=== PATIENT | male | born 1975 | race Caucasian/White ===

== ENCOUNTER 2018-06-26 08:07 | Emergency (ER) | payer BC ==
[2018-06-26] MEDS ORDERED: 0.9 % SODIUM CHLORIDE 1,000 ML BAG IV ONE (08:26)
[2018-06-26] MEDS ORDERED: KETOROLAC 30 MG/ML VIAL IVP ONE (08:27)
--- NOTE | 2018-06-26 08:32 | Emergency Department Record ---
History of Present Illness - General Chief complaint: Flank Pain Stated complaint: BACK & ABD PAIN Time Seen by Provider: 06/26/18 08:19 Source: Patient Mode of Arrival: Ambulatory Limitations: No limitations - History of Present Illness Initial comments: The patient is here due to the acute onset of L lower back/flank pain that wraps around to the LLQ which came on suddenly about 2 hours ago. He has had mild intermittent nausea but no vomiting. The patient denies any dysuria, hematuria, diarrhea, fever or chills and he denies any hx of similar problems. MD Complaint: Other Onset/Timin -: Hour(s) Location: Left flank Radiation: L flank, LLQ Severity: Moderate Severity scale (1-10): 8 Quality: Aching, Sharp Consistency: Constant, Intermittent Improves with: None - Related Data Previous Rx's Medication Instructions Recorded Ibuprofen [Motrin] 800 mg PO TID PRN #20 tab 06/26/18 Ondansetron [Zofran Odt] 4 mg SL .Q4-6H PRN #12 tab.rapdis 06/26/18 Prednisone [Prednisone 20Mg] 40 mg PO DAILY #6 tab 06/26/18 Allergies Allergy/AdvReac Type Severity Reaction Status Date / Time ketorolac [From Toradol] Allergy RASH Verified 06/26/18 08:49 Penicillins Allergy PT UNSURE Verified 06/26/18 08:18 OF REACTION Travel Screening - Travel/Exposure Within Last 30 Days Have you traveled within the last 30 days?: No - Travel/Exposure Within Last Year Have you traveled outside the [place] in the last year?: No - Additonal Travel Details Have you been exposed to anyone with a communicable illness?: No - Travel Symptoms Symptom Screening: None Review of Systems Constitutional: Denies: Chills, Fever Eyes: Denies: Eye discharge ENT: Denies: Congestion Respiratory: Denies: Cough, Dyspnea Cardiovascular: Denies: Chest pain Endocrine: Denies: Fatigue Gastrointestinal: Reports: Nausea Genitourinary: Denies: Dysuria Musculoskeletal: Reports: Back pain. Denies: Arthralgia Skin: Denies: Bruising Past Medical History - SOCIAL HISTORY Smoking Status: Former smoker Alcohol Use: Rare Drug Use: None - RESPIRATORY Hx Respiratory Disorders: Yes Hx Asthma: Yes - CARDIOVASCULAR Hx Cardio Disorders: No - NEURO Hx Neuro Disorders: No - GI Hx GI Disorders: No - Hx Genitourinary Disorders: No - ENDOCRINE Hx Endocrine Disorders: No - MUSCULOSKELETAL Hx Musculoskeletal Disorders: No - PSYCH Hx Psych Problems: No - HEMATOLOGY/ONCOLOGY Hx Hematology/Oncology Disorders: No Family Medical History Any Significant Family History?: No Physical Exam - General General Appearance: Alert, Oriented x3, Cooperative, No acute distress - Head Head exam: Atraumatic, Normocephalic, Normal inspection - Eye Eye exam: Normal appearance, PERRL - ENT Throat exam: Normal inspection. negative: Tonsillar erythema, Tonsillar exudate - Neck Neck exam: Normal inspection, Full ROM. negative: Tenderness - Respiratory Respiratory exam: Normal lung sounds bilaterally. negative: Respiratory distress - Cardiovascular Cardiovascular Exam: Regular rate, Normal rhythm, Normal heart sounds - GI/Abdominal GI/Abdominal exam: Soft, Tenderness (There is mild LLQ tenderness.). negative: Guarding, Pulsatile mass, Rebound, Rigid - Extremities Extremities exam: Normal inspection, Full ROM, Normal capillary refill. negative: Tenderness - Back Back exam: Reports: Normal inspection. Denies: CVA tenderness (R), CVA tenderness (L), Muscle spasm, Paraspinal tenderness, Vertebral tenderness - Neurological Neurological exam: Alert, Normal gait. negative: Abnormal gait, Motor sensory deficit - Psychiatric Psychiatric exam: negative: Anxious - Skin Skin exam: negative: Rash Course Vital Signs 06/26/18 06/26/18 08:12 08:18 Temperature 97.8 F Pulse Rate 77 Respiratory 16 Rate Blood Pressure 141/99 Pulse Ox 98 - Reevaluation(s) Reevaluation #1: The patient is doing well at this time. The pain did get worse at one time and now is improving. The patient did appear to have an allergic txn to Toradol and Benadryl and Solu-medrol was given. 06/26/18 09:28 Reevaluation #2: The patient states he is doing a lot better and states his pain has resolved. I did explain that the CT does demonstrate what appears to be recently passed stones in the bladder. He is very comfortable and will strain his urine and see his PCP for recheck. The patient has had Motrin multiple times and feels comfortable taking it at home. 06/26/18 10:17 Medical Decision Making - Data Complexity MDM Data: Labs Ordered and/or Reviewed, X-Ray Ordered and/or Reviewed - Lab Data Result diagrams: 06/26/18 08:40 06/26/18 08:40 - Radiology Data Radiology results: Report reviewed (CT: Mild L hydroureter with 2 small stones in bladder, the larger measuring 2-3 mm and appear to be recently passed.) Disposition Disposition: Discharge Clinical Impression: Ureter colic Disposition: Home, Self-Care Condition: (2) Stable Instructions: Flank Pain (ED) Additional Instructions: Please drink plenty of fluids and strain your urine. Please bring your passed stones to your PCP. Please see your family doctor for recheck later this week or next week. Take Motrin for pain and use Zofran for nausea and also take Benadryl for 3 days along with the Prednisone. Return to the ER for any worsening pain, fever, or vomiting. Prescriptions: Ibuprofen [Motrin] 800 mg PO TID PRN #20 tab PRN Reason: Pain Ondansetron [Zofran Odt] 4 mg SL .Q4-6H PRN #12 tab.rapdis PRN Reason: Nausea Prednisone [Prednisone 20Mg] 40 mg PO DAILY #6 tab Forms: Patient Portal Access Time of Disposition: 10:21 Quality - Quality Measures Quality Measures: N/A - Blood Pressure Screening View Details: Yes Does Patient Have Any of the Following: No Blood Pressure Classification: Hypertensive Reading Systolic Measurement: 141 Diastolic Measurement: 99 Screening for High Blood Pressure: < First Hypertensive BP, F/U Documented > [ G8950] First Hypertensive Follow-up Interventions: Referral to alternative/primary care provider.
[2018-06-26] MEDS ORDERED: ONDANSETRON HCL IV 4 MG/2 ML VIAL IVP ONE (08:36)
[2018-06-26] MEDS ORDERED: METHYLPREDNISOLONE PF 125MG/VIAL IVP ONE (08:41)
[2018-06-26] MEDS ORDERED: DIPHENHYDRAMINE HCL 50 MG/ML VIAL IVP ONE (08:41)
[2018-06-26] MEDS ORDERED: ACETAMINOPHEN 1,000 MG/100 ML BTL IVPB ONE (08:45)
[2018-06-26 08:54] LABS: BASO % 0.2 % (0-6); EOS % 1.2 % (0-6); HEMATOCRIT 41.9 % (42.0-52.0); HEMOGLOBIN 14.5 gm/dl (14.0-18.0); LYMPH % 12.9 % (16-45); MEAN CELL VOLUME 88.2 fl (81-97); MEAN CORPUSCULAR HEMOGLOBIN 30.5 pg (27-33); MEAN CORPUSCULAR HGB CONC 34.6 g/dl (32-36); MEAN PLATELET VOLUME 8.8 fl (7.4-10.4); MONO % 5.7 % (0-9); PLATELET COUNT 258 K/uL (130-400); RED BLOOD COUNT 4.75 M/uL (4.40-5.70); RED CELL DISTRIBUTION WIDTH 12.4 % (11.5-14.5); WHITE BLOOD COUNT W/O DIFF 10.2 K/uL (4.2-12.2)
[2018-06-26 09:02] LABS: BLOOD UREA NITROGEN 12 mg/dL (6-20); CREATININE 1.1 mg/dL (0.7-1.2); EST GLOMERULAR FILTRATION RATE > 60 mL/min
[2018-06-26 09:04] LABS: GLUCOSE,RANDOM 127 mg/dL (74-109)
[2018-06-26] MEDS ORDERED: HYDROMORPHONE HCL 2 MG/ML VIAL IVP ONE (09:16)
[2018-06-26 09:37] LABS: URINE APPEARANCE CLEAR; URINE BILIRUBIN NEGATIVE (NEGATIVE); URINE BLOOD SMALL (NEGATIVE); URINE COLOR YELLOW; URINE GLUCOSE (UA) NEGATIVE (NEGATIVE); URINE KETONE NEGATIVE (NEGATIVE); URINE LEUKOCYTE ESTERASE NEGATIVE (NEGATIVE); URINE NITRITE NEGATIVE (NEGATIVE); URINE UROBILINOGEN 0.2 E.U./dL (0.20 - 1.00)
[2018-06-26 09:47] LABS: URINE MUCUS LIGHT; URINE WBC 0 - 2 (0-2/hpf)
--- NOTE | 2018-06-28 10:51 | CT SCAN REPORT ---
EXAM: NONCONTRAST CT OF THE ABDOMEN AND PELVIS HISTORY: LEFT FLANK PAIN. TECHNIQUE: Noncontrast CT of the abdomen and pelvis was obtained. Comparison: None. FINDINGS: The lung bases are clear. Unremarkable noncontrast CT appearance of the liver, spleen, gallbladder, adrenal glands, and pancreas. Mild left hydroureteronephrosis. No definite intraureteral or intrarenal calculi are seen. There are two small calculi which appear to be within the bladder lumen, one of which is slightly adjacent to the left ureterovesicular junction and measures between 2 and 3 mm. The urinary bladder is otherwise collapsed and not well assessed. The colon appears collapsed and possibly mildly thickened from the mid transverse colon through the rectum. The remainder of the colon is non- thickened and noninflamed. Normal appendix. The stomach and small bowel are nondilated. No free air or free fluid. The abdominal aorta is nondilated. Intravertebral disk height loss with bulge at L5-S1. No acute osseous findings. IMPRESSION: 1. MILD LEFT HYDROURETERONEPHROSIS. THERE ARE TWO CALCULI, THE LARGEST OF WHICH MEASURES BETWEEN 2 AND 3 MM WHICH APPEAR TO BE WITHIN THE URINARY BLADDER AND MAY HAVE RECENTLY PASSED. 2. COLLAPSED AND POSSIBLE MILD THICKENING OF THE COLON FROM THE MID TRANSVERSE THROUGH THE SIGMOID COLON. THIS APPEARANCE MAY BE RELATED TO UNDERDISTENTION ALTHOUGH CORRELATION FOR UNDERLYING COLITIS IS RECOMMENDED. JOB NUMBER: [id number] [facility]
== END 2018-06-26 10:30 | disposition home or self-care (01) ==
LOC: ER 08:07
DX: N13.2 Hydronephrosis with renal and ureteral calculous obstruction (principal); L27.1 Localized skin eruption due to drugs and medicaments taken internally; T39.8X5A Adverse effect of other nonopioid analgesics and antipyretics, not elsewhere classified, initial encounter; R20.0 Anesthesia of skin; R10.32 Left lower quadrant pain; Z87.891 Personal history of nicotine dependence; Y92.230 Patient room in hospital as the place of occurrence of the external cause
CPT/HCPCS: 99284 ×2; 96365; 96375; 96361; 85025; 80048; 81001; 74176; J1885; J2405; J1200; J2930; J7030

== ENCOUNTER 2018-07-28 20:40 | Emergency (ER) | payer BC ==
--- NOTE | 2018-07-28 20:54 | Emergency Department Record ---
History of Present Illness - General Chief Complaint: Ankle/Foot Injury Stated Complaint: LT FOOT PAIN/SWELLING Time Seen by Provider: 07/28/18 20:48 Source: Patient Mode of Arrival: Ambulatory Limitations: No limitations - History of Present Illness Initial Comments: 42 yo male presents with an injury to the left foot and ankle. He mis-stepped on a rug at 5pm. He felt a pop in the left foot and ankle. Over the last 4-5 hours the pain has increased. He initially was able to bear weight. No history of foot and ankle pain. MD Complaint: Ankle injury, Foot injury Onset/Timin -: Hour(s) Type of Injury: Unknown Place: Home Severity: Moderate Severity scale (1-10): 6 Improves With: Rest Worsens With: Movement, Palpation, Weight bearing Context: Walking, Other Treatments Prior to Arrival: NSAIDS - Related Data Previous Rx's Medication Instructions Recorded Ibuprofen [Motrin] 800 mg PO TID PRN #20 tab 06/26/18 Allergies Allergy/AdvReac Type Severity Reaction Status Date / Time ketorolac [From Toradol] Allergy RASH Verified 07/28/18 20:43 Penicillins Allergy PT UNSURE Verified 07/28/18 20:43 OF REACTION Travel Screening - Travel/Exposure Within Last 30 Days Have you traveled within the last 30 days?: No - Travel Symptoms Symptom Screening: None Review of Systems Constitutional: Denies: Chills, Fever, Malaise, Weakness Eyes: Denies: Eye discharge ENT: Denies: Congestion, Throat pain Respiratory: Denies: Cough Cardiovascular: Denies: Chest pain, Palpitations, Syncope Endocrine: Denies: Fatigue Gastrointestinal: Denies: Abdominal pain, Diarrhea, Nausea, Vomiting Musculoskeletal: Reports: Arthralgia. Denies: Back pain Skin: Denies: Bruising, Rash Neurological: Denies: Headache Psychiatric: Denies: Anxiety Hematological/Lymphatic: Denies: Easy bleeding, Easy bruising Past Medical History - SOCIAL HISTORY Smoking Status: Former smoker - RESPIRATORY Hx Respiratory Disorders: Yes Hx Asthma: Yes - CARDIOVASCULAR Hx Cardio Disorders: No - NEURO Hx Neuro Disorders: No - GI Hx GI Disorders: No - Hx Genitourinary Disorders: No - ENDOCRINE Hx Endocrine Disorders: No - MUSCULOSKELETAL Hx Musculoskeletal Disorders: No - PSYCH Hx Psych Problems: No - HEMATOLOGY/ONCOLOGY Hx Hematology/Oncology Disorders: No Family Medical History Any Significant Family History?: No Family Hx Comment (NOT TO BE USED IN PLACE OF ITEMS BELOW): denies Physical Exam - General General Appearance: Alert, Oriented x3, Cooperative, No acute distress Limitations: No limitations - Head Head exam: Atraumatic, Normal inspection - Eye Eye exam: Normal appearance. negative: Conjunctival injection - ENT ENT exam: Normal exam Ear exam: Normal external inspection Nasal Exam: Normal inspection Mouth exam: Normal external inspection - Neck Neck exam: Normal inspection - Cardiovascular Peripheral Pulses: 2+: Dorsalis Pedis (L) - Extremities Extremities exam: Full ROM, Joint swelling, Tenderness, Other (No achilles tenderness). negative: Calf tenderness, Pedal edema Image of Feet: 1 - lateral malleolar tenderness, mild swelling, mid foot and lateral foot tenderness - Back Back exam: Denies: CVA tenderness (R), CVA tenderness (L) - Neurological Neurological exam: Alert, Oriented X3 - Psychiatric Psychiatric exam: Normal affect, Normal mood. negative: Agitated, Anxious - Skin Skin exam: Dry, Intact, Normal color, Warm Course Vital Signs 07/28/18 20:44 Temperature 97.7 F Pulse Rate 89 Respiratory 18 Rate Blood Pressure 153/95 Pulse Ox 97 - Reevaluation(s) Reevaluation #1: 07/28/18 21:18 The XR of the foot and ankle were reviewed. There is an acute avulsion of the proximal navicular bone. He has significant pain in that location. He will be placed in a boot and crutches provided for support We discussed home care with [facility] and reasons for follow up He will be referred to orthopedics as well 07/28/18 21:32 Disposition Disposition: Discharge Clinical Impression: Navicular fracture, foot Ankle sprain Qualifiers: Encounter type: initial encounter Involved ligament of ankle: unspecified ligament Laterality: left Qualified Code(s): S93.402A - Sprain of unspecified ligament of left ankle, initial encounter Disposition: Home, Self-Care Condition: (1) Good Instructions: Foot Fracture in Adults (ED) Additional Instructions: Call your doctor for the next available follow up appointment in the next week if pain continues Return to the ER for a recheck if worse, any new concerns or questions Use the crutches and boot for support as your foot and ankle heal Review this ER visit and the tests performed with your family doctor Referrals: [facility] [DOCTOR OF OSTEOPATH] - [facility] [Provider Group] Forms: Patient Portal Access Time of Disposition: 21:34 Quality - Quality Measures Quality Measures: N/A - Blood Pressure Screening Does Patient Have Any of the Following: No Blood Pressure Classification: Hypertensive Reading Systolic Measurement: 153 Diastolic Measurement: 95 Screening for High Blood Pressure: < Pre-Hypertensive BP, F/U Documented > [ G8950] Pre-Hypertensive Follow-up Interventions: Referral to alternative/primary care provider.
== END 2018-07-28 21:44 | disposition home or self-care (01) ==
LOC: ER 20:40
DX: S92.252A Displaced fracture of navicular [scaphoid] of left foot, initial encounter for closed fracture (principal); S93.402A Sprain of unspecified ligament of left ankle, initial encounter; X50.0XXA Overexertion from strenuous movement or load, initial encounter; Y92.009 Unspecified place in unspecified non-institutional (private) residence as the place of occurrence of the external cause
CPT/HCPCS: 99283; 99284